=== PATIENT | female | born 1955 | race Caucasian/White ===

== ENCOUNTER 2016-06-16 06:15 | Outpatient (CLI) | payer OTHER ==
[~2016-06-16] VITALS: Ht 157.5 cm; Wt 81.8 kg
[2016-06-16 07:28] LABS: BASOPHILS 0.7 % (0.0-2.0); EOSINOPHILS 1.7 % (0-7); HEMATOCRIT 40.3 % (36.0-48.0); IMMATURE GRANULOCYTES 0.1 % (0-5); LYMPHOCYTES 32.9 % (15-50); MCH 28.2 pg (26.0-34.0); MCHC 32.3 g/dL (31.0-37.0); MCV 87.4 fL (80.0-100.0); MEAN PLATELET VOLUME 10.3 fL (7.4-10.4); MONOCYTES 4.8 % (2-11); NEUTROPHILS 59.8 % (40-80); PLATELET COUNT 278 10x3/uL (130-400); RBC 4.61 10x6/uL (4.00-5.40); RDW 13.3 % (11.5-14.5); WBC 6.9 10x3/uL (4.8-10.8)
[2016-06-16] MEDS ORDERED: SPIRIVA18 MCG INH (07:34)
[2016-06-16] MEDS ORDERED: SINGULAIR10 MG PO (07:35)
[2016-06-16] MEDS ORDERED: BREO ELLIPTA 21 EACH (07:35)
[2016-06-16] MEDS ORDERED: NAPROSYN500 MG PO (07:36)
[2016-06-16] MEDS ORDERED: NEXIUM40 MG PO (07:36)
[2016-06-16 07:47] LABS: ALBUMIN 3.3 g/dL (3.4-5.0); ANION GAP 9.7 mmol/L (8-16); BILIRUBIN - TOTAL 0.32 mg/dL (0.2-1.3); CALCIUM 9.2 mg/dL (8.5-10.1); CARBON DIOXIDE 30.5 mmol/L (21.0-32.0); CHOL - HDL RATIO 4.1 ratio (2.3-4.1); LDL-HDL RATIO 2.9 ratio (1.5-3.5); POTASSIUM - SERUM 4.2 mmol/L (3.5-5.1); PROTEIN - SERUM 7.6 g/dL (6.4-8.2)
[2016-06-16 07:50] LABS: APTT 29.2 SECONDS (22.8-39.4); INR 0.98 (0.85-1.17); PROTIME 12.8 SECONDS (11.6-15.0)
[2016-06-16 07:52] VITALS: BP 132/84; Ht 157.5 cm; Wt 81.8 kg
--- NOTE | 2016-06-16 18:30 | NUR ---
1000 RESTING QUITELY WITH EYES CLOSE RESP EVEN. TOM RODRIGUEZ IN ROOM VISITING WITH FAMILY 1115 NO CHANGE 1200 AWAKE C/O HEADACHE , CALLED NEW ORDERS 1215 NORCO PO GIVEN 1216 C/O NAUSEA , CALLED NEW ORDERS PER DR SEQUEIRA 1218 ZOFRAN 4 MG IV GIVEN 1230 ASKING FOR MT RUBY, CALLED FOR DRINK 1300 STILL HURTING , 1400 TOM RODRIGUEZ HERE , NO NEW ORDERS 1445 IV DC WITH CTHER TIP INTACT 1515 C/O NAUSEA DR SEQUEIRA CALLED NO NEW ORDERS 1530 STATED FEELS SOME BETTER,ROMO 5ON PAIN SCALE
--- NOTE | 2016-06-16 18:39 | NUR ---
[address] IN CHART ON POST OP SHEET
== END 2016-06-16 15:30 | disposition home or self-care (01) ==
LOC: D.OPS 06:15 → D.CT 08:00 → D.OPS 15:30
PROVIDERS: General Practice
DX: K76.9 Liver disease, unspecified (principal)

== ENCOUNTER 2016-07-21 05:36 | Outpatient (CLI) | payer OTHER ==
[~2016-07-21] VITALS: Ht 157.5 cm; Wt 77.3 kg
[~2016-07-21 05:36] MED LIST: BREO ELLIPTA 21 EACH; NAPROSYN500 MG PO; NEXIUM40 MG PO; SINGULAIR10 MG PO; SPIRIVA18 MCG INH
[2016-07-21 06:54] LABS: BASOPHILS 0.6 % (0.0-2.0); EOSINOPHILS 2.1 % (0-7); HEMATOCRIT 37.3 % (36.0-48.0); HEMOGLOBIN 11.7 g/dL (12-16); LYMPHOCYTES 37.4 % (15-50); MCH 27.3 pg (26.0-34.0); MCHC 31.4 g/dL (31.0-37.0); MCV 86.9 fL (80.0-100.0); MEAN PLATELET VOLUME 9.5 fL (7.4-10.4); MONOCYTES 6.7 % (2-11); NEUTROPHILS 53.2 % (40-80); PLATELET COUNT 250 10x3/uL (130-400); RBC 4.29 10x6/uL (4.00-5.40); RDW 13.9 % (11.5-14.5); WBC 5.2 10x3/uL (4.8-10.8)
[2016-07-21 06:59] LABS: INR 0.98 (0.85-1.17); PROTIME 12.8 SECONDS (11.6-15.0)
[2016-07-21 07:02] LABS: ANION GAP 10.6 mmol/L (8-16); CALCIUM 8.6 mg/dL (8.5-10.1); CARBON DIOXIDE 29.9 mmol/L (21.0-32.0); POTASSIUM - SERUM 4.5 mmol/L (3.5-5.1)
[2016-07-21 07:18] VITALS: BP 149/84; Ht 157.5 cm; Wt 77.3 kg
--- NOTE | 2016-07-21 08:56 | NUR ---
IV REMOVED INTACT PER PT REQUEST. INFORMED CHRIS KEMPOR THAT IR NEEDED TO WRITE A DC ORDER
--- NOTE | 2016-07-21 09:10 | NUR ---
ORDERS RECEIVED FOR DISCHARGE. DISCHARGE INSTRUCTIONS GIVEN, VOICED UNDERSTANDING. DISCHARGED HOME, AMBULATED PER REQUEST.
== END 2016-07-21 09:10 | disposition home or self-care (01) ==
LOC: D.OPS 05:36 → D.CT 08:00 → D.OPS 09:10
PROVIDERS: General Practice
DX: K76.9 Liver disease, unspecified (principal); Z01.810 Encounter for preprocedural cardiovascular examination; Z01.811 Encounter for preprocedural respiratory examination; Z01.812 Encounter for preprocedural laboratory examination; Z53.9 Procedure and treatment not carried out, unspecified reason

== ENCOUNTER → 2017-03-29 09:55 | Outpatient (CLI) | payer SELFPAY ==
[2016-07-21 07:18] VITALS: BMI 31.1
== END | disposition home or self-care (01) ==
LOC: D.RT 03-19 10:00 → D.RAD 03-19 11:00 → D.RT 09:55
DX: J44.9 Chronic obstructive pulmonary disease, unspecified (principal)

== ENCOUNTER → 2018-12-26 08:27 | Outpatient (CLI) | payer SELFPAY ==
[2016-07-21 07:18] VITALS: BMI 31.1
== END | disposition home or self-care (01) ==
LOC: D.RT 08:27
PROVIDERS: ATTEND Internal Medicine Pulmonary Disease
DX: J44.9 Chronic obstructive pulmonary disease, unspecified (principal)

== ENCOUNTER → 2019-12-23 10:35 | Outpatient (CLI) | payer OTHER ==
[2016-07-21 07:18] VITALS: BMI 31.1
== END | disposition home or self-care (01) ==
LOC: D.LAB 10:35
PROVIDERS: ATTEND Internal Medicine Pulmonary Disease
DX: Z11.59 Encounter for screening for other viral diseases (principal)

== ENCOUNTER → 2019-12-25 10:32 | Outpatient (CLI) | payer OTHER ==
[2016-07-21 07:18] VITALS: BMI 31.1
== END | disposition home or self-care (01) ==
LOC: D.RT 10:32
PROVIDERS: ATTEND Internal Medicine Pulmonary Disease
DX: J44.9 Chronic obstructive pulmonary disease, unspecified (principal)